=== PATIENT | male | born 1965 | race Caucasian/White ===

== ENCOUNTER 2018-01-21 07:47 | Day surgery (SDC) | payer BC, OTHER ==
[2018-01-21] MEDS ORDERED: LIDOCAINE 1% 300 MG/30 ML SDV SC ONE (07:50)
--- NOTE | 2018-01-21 11:38 | PDGENHP ---
History & Physical Chief Complaint: linq device removal History of Present Illness: Mr. Aleks Guy is a 52 year old man with a Linq loop recorder that needs to be removed as it is nearing end of life and was placed approximately 3 years ago. Pertinent Past, Social, Family History: The patient has a history of atrial fibrillation and flutter Relevant Physical Exam: Awake alert oriented x3 feels well and is cooperative and ready for LINQ removal. no JVD, and the heart rate is regular with regular rhythm. The lungs are clear to auscultation, Abdomen is benign and extremities are warm dry and well perfused with no peripheral edema Cardiorespiratory Assessment: Please see above
--- NOTE | 2018-01-21 13:36 | CPIP ---
DATE OF PROCEDURE: 01/21/2018 PROCEDURE PERFORMED: LINQ loop recorder removal. COMPLICATIONS: None. BRIDGE REPAIRER: Hugo Waterman MD PROCEDURE IN DETAIL: After informed consent was obtained, n.p.o. status was confirmed, the region of the left parasternal region was cleaned, prepped, and draped in sterile fashion. Approximately 15 c c of 1% lidocaine was utilized for local anesthesia. A #12 blade was used to sharply incise the skin , and manual manipulation and forceps were used to remove the LINQ device from the parasternal region . Local pressure was used for hemostasis. After adequate hemostasis had been achieved, the skin was closed with 4 interrupted dawna with good wound edge apposition and hemostasis documented. FINAL IMPRESSION: Successful LINQ loop recorder removal. /[id number]/[id number]
== END 2018-01-21 09:51 | disposition home or self-care (01) ==
LOC: FCATH 07:47
PROVIDERS: ATTEND Internal Medicine Cardiovascular Disease
PROC: 0JPT0PZ Removal of Cardiac Rhythm Related Device from Trunk Subcutaneous Tissue and Fascia, Open Approach (ICD-10-PCS; principal; 2018-01-21)
DX: Z45.09 Encounter for adjustment and management of other cardiac device (principal); I48.0 Paroxysmal atrial fibrillation; I42.2 Other hypertrophic cardiomyopathy; I48.92 Unspecified atrial flutter; Z79.82 Long term (current) use of aspirin